=== PATIENT | female | born 1995 | race Hispanic/Latino ===

== ENCOUNTER 2020-04-01 13:08 | Emergency (ER) | payer MEDICAID, OTHER ==
[2020-04-02 14:04] LABS: SARS-CoV-2 MS2 Positive; SARS-CoV-2 N Gene Positive; SARS-CoV-2 S Gene Positive; SARS-CoV-2 orf1ab Positive
== END 2020-04-01 13:22 | disposition home or self-care (01) ==
LOC: ERS 13:08
DX: U07.1 COVID-19 (principal); R05 Cough; R50.9 Fever, unspecified
CPT/HCPCS: 87635; 99283; U0003

== ENCOUNTER 2021-07-02 12:41 | Emergency (ER) | payer OTHER, SELFPAY | END 2021-07-02 15:28 | disposition home or self-care (01) | LOC: ERS 12:41 | DX: R51.9 Headache, unspecified (principal); T50.B95A Adverse effect of other viral vaccines, initial encounter | CPT/HCPCS: 99283 ==

== ENCOUNTER 2021-08-30 14:29 | Outpatient (CLI) | payer BC ==
[~2021-08-30 14:29] MED LIST: Magnevist 469MG/ML 20 ML VIAL ONE
== END 2021-08-30 14:30 | disposition home or self-care (01) ==
LOC: BICMRI 14:29
PROVIDERS: ATTEND Family Medicine
DX: G44.329 Chronic post-traumatic headache, not intractable (principal)
CPT/HCPCS: 70553; A9579

== ENCOUNTER 2021-09-14 02:44 | Emergency (ER) | payer BC | END 2021-09-14 03:44 | disposition home or self-care (01) | LOC: ERS 02:44 | DX: H66.91 Otitis media, unspecified, right ear (principal) | CPT/HCPCS: 99282 ==